=== PATIENT | female | born 2000 | race Caucasian/White ===

== ENCOUNTER 2020-08-21 20:12 | Emergency (ER) | payer MEDICAID, OTHER ==
[~2020-08-21] VITALS: Ht 167.6 cm; Wt 88.0 kg
[2020-08-22 01:30] VITALS: BP 131/74
== END 2020-08-22 01:33 | disposition home or self-care (01) ==
LOC: ER 20:12
DX: N63.0 Unspecified lump in unspecified breast (principal)
CPT/HCPCS: 76641; 93005; 99284

== ENCOUNTER 2020-12-29 14:37 | Emergency (ER) | payer MEDICAID ==
[~2020-12-29] VITALS: Ht 167.6 cm; Wt 88.0 kg
[2020-12-29] MEDS ORDERED: DEXAMETHASONE 4MG TABLET PO ONE (19:30)
[2020-12-29 19:50] VITALS: BP 130/95
== END 2020-12-29 20:52 | disposition home or self-care (01) ==
LOC: ER 14:37
DX: J02.9 Acute pharyngitis, unspecified (principal); J06.9 Acute upper respiratory infection, unspecified; I49.9 Cardiac arrhythmia, unspecified
CPT/HCPCS: 70450; 81025; 93005; 99284; J8540

== ENCOUNTER 2022-09-12 14:33 | Emergency (ER) | payer MEDICAID ==
[~2022-09-12] VITALS: Ht 165.1 cm; Wt 90.0 kg
[~2022-09-12 14:33] MED LIST: CLIN-194 MT; GUAI-453 MT; IBUP-2030 MT; TRAM50TA3 MT
[2022-09-12 15:01] VITALS: BP 159/97
[2022-09-13 00:25] LABS: BASOPHILS % 0.6 % (0.0-2.0); EOSINOPHILS % 1.6 % (0.0-5.0); HEMATOCRIT. 39.3 % (36.0-48.0); LYMPHOCYTES % 32.2 % (20.0-50.0); MEAN CORPUSCULAR HEMOGLOBIN 25.1 pg (28.0-32.0); MEAN CORPUSCULAR VOLUME 75.8 fL (81.0-99.0); MEAN PLATELET VOLUME 8.5 fl (7.4-10.4); MONOCYTES % 4.8 % (2.0-8.0); NEUTROPHILS % 60.8 % (40.0-76.0); PLATELET 342 x1000/uL (130-400); RED BLOOD CELL COUNT 5.18 mill/uL (4.2-5.4); RED CELL DISTRIBUTION WIDTH 14.5 % (11.6-14.6)
[2022-09-13 00:31] LABS: HCG SCREEN NEGATIVE
[2022-09-13 01:04] LABS: CHLORIDE 107 mEq/L (98-107)
== END 2022-09-13 02:28 | disposition home or self-care (01) ==
LOC: ER 14:33
DX: R00.2 Palpitations (principal); R06.02 Shortness of breath
CPT/HCPCS: 36415; 71045; 80053; 84703; 85025; 86850; 86900; 93005; 99285